=== PATIENT | male | born 1950 | race Caucasian/White ===

== ENCOUNTER 2019-04-18 15:33 | Inpatient (IN) ==
[2019-04-18] MEDS ORDERED: ONDANSETRON INJ 2 MG/ML 2 ML VIAL IV STA (15:54)
[2019-04-18] MEDS ORDERED: MoRPHine SULFATE 4 MG/ML 1 ML CARP\\VIAL IV STA (15:54)
[2019-04-18 16:25] LABS: Basophils # (auto) 0.06 K/uL (0-0.2); Basophils % (auto) 0.5 %; Eosinophils # (auto) 0.17 K/uL (0-0.5); Eosinophils % (auto) 1.4 %; Hematocrit (blood only) 44.1 % (42-52); Hemoglobin 15.7 g/dL (14.0-18.0); Immature Granulocytes # (auto) 0.06 K/uL (0.00-0.02); Immature Granulocytes % (auto) 0.5 %; Lymphocytes # (auto) 1.59 K/uL (1.2-3.4); Lymphocytes % (auto) 12.7 %; Mean Corpuscular Hemoglobin 31.7 pg (25-34); Mean Corpuscular Hgb Conc 35.6 g/dL (32-36); Mean Corpuscular Volume 89.1 fL (80-100); Mean Platelet Volume 9.3 fL (7.4-10.4); Monocytes # (auto) 1.01 K/uL (0.11-0.59); Monocytes % (auto) 8.1 %; Neutrophils # (auto) 9.64 K/uL (1.4-6.5); Neutrophils % (auto) 76.8 %; Platelet Count 242 K/uL (130-400); RDW Coefficient of Variation 12.8 % (11.5-14.5); RDW Standard Deviation 41.5 fL (36.4-46.3); Red Blood Count 4.95 M/uL (4.7-6.1); White Blood Count 12.53 K/uL (4.8-10.8)
[2019-04-18 16:40] LABS: INR 1.1 (0.9-1.1); Partial Thromboplastin Ratio 0.9; Partial Thromboplastin Time 23.6 Seconds (21.0-31.0); Prothrombin Time 11.4 Seconds (9.0-12.0)
[2019-04-18 16:46] LABS: Albumin Level 3.9 gm/dl (3.4-5.0); BUN Creatinine Ratio 23.6 (10-20); Calcium 9.7 mg/dl (8.5-10.1); Creatinine Clr Calc Pharmacy 56.7 ml/min; Est GFR (African American) 51.3; Est GFR (Non-African American) 44.2; Potassium 4.1 mmol/L (3.5-5.1)
[2019-04-18 16:56] LABS: Albumin Globulin Ratio 0.8 (0.9-2); Bilirubin,Total 0.9 mg/dl (0.2-1); Globulin 4.8 gm/dl (2.5-4.0); Thyroid Stimulating Hormone 1.54 uIu/ml (0.300-4.500); Total Protein 8.7 gm/dl (6.4-8.2)
--- NOTE | 2019-04-18 17:50 | Ultrasound Report ---
LEFT LOWER EXTREMITY VENOUS DOPPLER HISTORY: Left leg swelling eval for dvt COMPARISON STUDY: None. FINDINGS: There is occlusive thrombus throughout the deep venous structures of the left lower extremi ty as well as the greater saphenous vein and deep femoral vein. IMPRESSION: Extensive DVT throughout the entire left lower extremity. Electronically signed by: Ray Barron M.D. 04/18/2019 5:49 PM
[2019-04-18] MEDS ORDERED: OPTIRAY 320 125ml IV PRN (17:57)
--- NOTE | 2019-04-18 18:31 | CT Scan Report ---
CHEST CTA for PULMONARY ARTERIES CT DOSE: 586.68 mGy.cm HISTORY: Positive DVT. Assess for pulmonary embolus. TECHNIQUE: Multiaxial CT images of the chest were performed following the intravenous administration of contrast to evaluate the pulmonary arteries. Maximal intensity projection images were also obtaine d. A dose lowering technique was utilized adhering to the principles of ALARA. COMPARISON STUDY: None. FINDINGS: Small scattered nonocclusive filling defects seen within the distal right main pulmonary ar jennifer, the right upper lobe and the right lower lobe pulmonary arteries. These are consistent with pul monary emboli. There is flattening of the interventricular septum suggestive of mild right-sided hear t strain. Normal caliber thoracic aorta with no evidence for dissection. No pleural or pericardial ef fusions. The visualized liver and spleen are unremarkable. Normal esophagus. No mediastinal or hilar lymphadenopathy. No suspicious lytic are blastic osseous lesions. No pneumothorax. The central airway s are patent. Small wedge-shaped consolidation within the base of the right lower lobe likely represe nts a pulmonary infarct. A few additional scattered linear densities at the lung bases favor subsegme ntal atelectasis or scarring. IMPRESSION: 1. Right-sided pulmonary emboli with mild flattening of the interventricular septum suggestive of mil d right-sided heart strain. 2. Small focal wedge-shaped consolidation within the base of the right lower lobe consistent with a p ulmonary infarct. Electronically signed by: Ray Barron M.D. 04/18/2019 6:29 PM
[2019-04-18] MEDS ORDERED: HEPARIN SOD (PORCINE) 1000 UNIT/ML 10 ML VIAL ONE (18:57)
[2019-04-18] MEDS: HEPARIN SODIUM/DEXTROSE 25,000 UNITS/500 ML BAG IV SCH (19:05)
--- NOTE | 2019-04-18 20:59 | Emergency Department Note ---
Entered by Linsey Miller acting as a scribe for Paco Mosqueda MD History of Present Illness General Chief complaint: Leg Injury/Pain Stated complaint: L LEG SWOLLEN Source: patient Limitations: no limitations History of Present Illness Onset (ago): week(s) 2 Location: lower extremity (left) Pain Consistency: + constant Maximum Pain Intensity: 9 Quality: + other (pain and swelling ) Associated symptoms: + denies other symptoms (abdominal pain, lower extremity numbness, diarrhea, chest pain, fever, and erythema to the LLE), + nausea/vomiting and + shortness of breath The patient is a 68 year old male who presents to the Emergency Room with complaints of constant left lower extremity pain and swelling that began 2 week ago. He states that he woke up with the pain 2 weeks ago, and he denies any injury to the area. The patient complains of intermittent SOB, but he states th at he is not short of breath now. He reports that he vomited once within the past week. The patient denies any abdominal pain, lower extremity numbness, diarrhea, chest pain, fever, and erythema to the LLE. He denies any medical problems, history of DVT or PE, and recent trips. Home Medications Home Medications Medication Instructions Recorded Confirmed Type No Known Home Medications 04/18/19 04/18/19 History Allergies Allergy/AdvReac Type Severity Reaction Status Date / Time No Known Allergies Allergy Unverified 04/18/19 17:21 Past Med/Surg History Medical History Cyst Social History Preferred Language: Jamaican Feels Safe at Home: Yes Smoking Status: Never smoker Review of Systems See HPI for pertinent positives & negatives. and A total of 10 systems reviewed and were otherwise negative Physical Exam Vital Signs Vital Signs - 24 hr 04/18/19 15:39 04/18/19 15:57 04/18/19 16:00 Temperature 36.4 C L Temperature Source Oral Sepsis Recent Fever Within 48 Hours No Sepsis New/Unexplained Change in Mental Status No Sepsis Action Taken by Nursing No Action Required Pulse Rate 143 H 115 H 111 H Pulse Rate from SpO2 Sensor 114 H 112 H Respiratory Rate 18 19 17 Blood Pressure 137/84 Blood Pressure Mean 101 Pulse Oximetry 98 97 98 Oxygen Delivery Method Room Air 04/18/19 16:13 04/18/19 16:30 04/18/19 17:00 Temperature Temperature Source Sepsis Recent Fever Within 48 Hours Sepsis New/Unexplained Change in Mental Status Sepsis Action Taken by Nursing Pulse Rate 111 H 111 H 107 H Pulse Rate from SpO2 Sensor 111 H 113 H 106 H Respiratory Rate 15 23 22 Blood Pressure 171/94 H 149/95 H 160/87 H Blood Pressure Mean 119 113 111 Pulse Oximetry 97 98 97 Oxygen Delivery Method 04/18/19 18:08 04/18/19 18:09 04/18/19 18:10 Temperature Temperature Source Sepsis Recent Fever Within 48 Hours Sepsis New/Unexplained Change in Mental Status Sepsis Action Taken by Nursing Pulse Rate 109 H 122 H 113 H Pulse Rate from SpO2 Sensor 122 H 112 H Respiratory Rate 18 23 23 Blood Pressure 165/109 H Blood Pressure Mean 127 Pulse Oximetry 99 98 99 Oxygen Delivery Method 04/18/19 18:30 04/18/19 19:00 04/18/19 19:30 Temperature Temperature Source Sepsis Recent Fever Within 48 Hours Sepsis New/Unexplained Change in Mental Status Sepsis Action Taken by Nursing Pulse Rate 100 H 102 H 103 H Pulse Rate from SpO2 Sensor 101 H 103 H 103 H Respiratory Rate 25 H 16 18 Blood Pressure 159/85 H 153/97 H 152/86 H Blood Pressure Mean 109 115 108 Pulse Oximetry 99 96 96 Oxygen Delivery Method 04/18/19 20:00 Temperature Temperature Source Sepsis Recent Fever Within 48 Hours Sepsis New/Unexplained Change in Mental Status Sepsis Action Taken by Nursing Pulse Rate 105 H Pulse Rate from SpO2 Sensor 107 H Respiratory Rate 18 Blood Pressure 132/95 Blood Pressure Mean 107 Pulse Oximetry 98 Oxygen Delivery Method Constitutional: Vital signs reviewed. Eyes: Pupils are equal round reactive to light. Conjunctiva are noninjected. ENT: Pharynx is clear without erythema or exudate. Mucous membranes are moist. Neck supple without meningeal signs. Respiratory: Clear to auscultation bilaterally. Breath sounds are equal bilaterally. Cardiovascular: Tachycardic rate of 115. Regular rhythm. No rubs or gallops. GI: Soft, nondistended and nontender. Bowel sounds are present. Musculoskeletal: Diffuse edema to the left lower extremity. 2+ distal pulse. Mild diffuse tenderness. Integumentary: No cyanosis. Neurological: The patient is awake and alert. No focal deficits. Psychiatric: Very anxious. Course 1549: The patient was evaluated in room C12B. A complete history and physical exam was performed. 1840: I reevaluated the patient and his heart rate was 98. The risk and benefits of heparin were discussed with the patient, and he is agreeable to heparin treatment. He denies any history of bleeding in the gut or the brain. 1843: I spoke with Dr. Rubalcava, [facility] hospitalist, about the patient's case. She will further evaluate the patient. 1920: I reassessed the patient. The heparin drip is running. Vital signs stable. Very slightly tachycardic. He denies any chest pain and SOB. Consultations Consultation #1: I spoke with Dr. Rubalcava, [facility] hospitalist, about the patient's case. She will further evaluate the patient. Time: 18:43 Administered Medications Heparin Sodium/Dextrose (Heparin Sodium/Dextrose) 25,000 units in 500 mls @ 0.02 mls/hr IV .Q24H DURAN; Protocol Stop: 05/18/19 18:44 Last Admin: 04/18/19 19:05 Dose: 1,600 units/hr, 32 mls/hr Documented by: [id number] Cosigned by: [id number] Ioversol (Optiray 320 125ml) 118 ml IV ONCE PRN PRN Reason: Interaction Checking Stop: 04/22/19 17:56 Last Admin: 04/18/19 17:58 Dose: 118 ml Documented by: [id number] Discontinued Medications Heparin Sodium (Porcine) (Heparin Iv Bolus) Confirm Administered Dose 10,000 units .ROUTE .STK-MED ONE Stop: 04/18/19 18:58 Last Admin: 04/18/19 19:04 Dose: 7,000 units Documented by: [id number] Cosigned by: [id number] Heparin Sodium/Dextrose () 1 ea IV NOW STA; Protocol Stop: 04/18/19 18:44 Last Admin: 04/18/19 19:53 Dose: Not Given Documented by: [id number] Morphine Sulfate (Morphine Sulfate) 4 mg IV NOW STA Stop: 04/18/19 15:55 Last Admin: 04/18/19 16:28 Dose: 4 mg Documented by: [id number] Ondansetron HCl (Zofran) 4 mg IV NOW STA Stop: 04/18/19 15:55 Last Admin: 04/18/19 16:28 Dose: 4 mg Documented by: [id number] Medical Decision Making Differential Diagnosis The differential diagnosis includes: DVT, superficial thrombophlebitis, PE, anxiety, and cellulitis Medical Records Attestation: I reviewed the patient's medical records. I did perform a limited focused review of portions of the patient's old chart on the electronic medical record. The patient has had no recent pertinent visits to this hospital. Home Medications Current Medication List: was personally reviewed by me Laboratory Data Attestation: I reviewed the patient's lab results. Result diagrams: 04/18/19 16:14 04/18/19 16:14 Lab Results 04/18/19 04/18/19 04/18/19 Range/Units 16:14 16:14 16:14 WBC 12.53 H (4.8-10.8) K/uL RBC 4.95 (4.7-6.1) M/uL Hgb 15.7 (14.0-18.0) g/dL Hct 44.1 (42-52) % MCV 89.1 (80-100) fL MCH 31.7 (25-34) pg MCHC 35.6 (32-36) g/dL RDW Std Deviation 41.5 (36.4-46.3) fL RDW Coeff of Xavi 12.8 (11.5-14.5) % Plt Count 242 (130-400) K/uL MPV 9.3 (7.4-10.4) fL Immature Gran % (Auto) 0.5 % Neut % (Auto) 76.8 % Lymph % (Auto) 12.7 % [place] % (Auto) 8.1 % Eos % (Auto) 1.4 % Baso % (Auto) 0.5 % Immature Gran # (Auto) 0.06 H (0.00-0.02) K/uL Neut # (Auto) 9.64 H (1.4-6.5) K/uL Lymph # (Auto) 1.59 (1.2-3.4) K/uL [place] # (Auto) 1.01 H (0.11-0.59) K/uL Eos # (Auto) 0.17 (0-0.5) K/uL Baso # (Auto) 0.06 (0-0.2) K/uL PT 11.4 (9.0-12.0) Seconds INR 1.1 (0.9-1.1) APTT 23.6 (21.0-31.0) Seconds PTT Ratio 0.9 Sodium 136 (136-145) mmol/L Potassium 4.1 (3.5-5.1) mmol/L Chloride 100 (98-107) mmol/L Carbon Dioxide 23 (21-32) mmol/L Anion Gap 13.0 H (3-11) BUN 38 H (7-18) mg/dl Creatinine 1.60 H (0.6-1.4) mg/dl Est Cr Clr Drug Dosing 56.7 ml/min Est GFR ( Amer) 51.3 Est GFR (Non-Af Amer) 44.2 BUN/Creatinine Ratio 23.6 H (10-20) Glucose 136 H (70-99) mg/dl Calcium 9.7 (8.5-10.1) mg/dl Total Bilirubin 0.9 (0.2-1) mg/dl AST 32 (15-37) U/L ALT 46 (12-78) U/L Alkaline Phosphatase 80 (45-117) U/L POC Troponin I (0-0.045) ng/ml Total Protein 8.7 H (6.4-8.2) gm/dl Albumin 3.9 (3.4-5.0) gm/dl Globulin 4.8 H (2.5-4.0) gm/dl Albumin/Globulin Ratio 0.8 L (0.9-2) TSH 1.540 (0.300-4.500) uIu/ml 04/18/19 Range/Units 16:24 WBC (4.8-10.8) K/uL RBC (4.7-6.1) M/uL Hgb (14.0-18.0) g/dL Hct (42-52) % MCV (80-100) fL MCH (25-34) pg MCHC (32-36) g/dL RDW Std Deviation (36.4-46.3) fL RDW Coeff of Xavi (11.5-14.5) % Plt Count (130-400) K/uL MPV (7.4-10.4) fL Immature Gran % (Auto) % Neut % (Auto) % Lymph % (Auto) % [place] % (Auto) % Eos % (Auto) % Baso % (Auto) % Immature Gran # (Auto) (0.00-0.02) K/uL Neut # (Auto) (1.4-6.5) K/uL Lymph # (Auto) (1.2-3.4) K/uL [place] # (Auto) (0.11-0.59) K/uL Eos # (Auto) (0-0.5) K/uL Baso # (Auto) (0-0.2) K/uL PT (9.0-12.0) Seconds INR (0.9-1.1) APTT (21.0-31.0) Seconds PTT Ratio Sodium (136-145) mmol/L Potassium (3.5-5.1) mmol/L Chloride (98-107) mmol/L Carbon Dioxide (21-32) mmol/L Anion Gap (3-11) BUN (7-18) mg/dl Creatinine (0.6-1.4) mg/dl Est Cr Clr Drug Dosing ml/min Est GFR ( Amer) Est GFR (Non-Af Amer) BUN/Creatinine Ratio (10-20) Glucose (70-99) mg/dl Calcium (8.5-10.1) mg/dl Total Bilirubin (0.2-1) mg/dl AST (15-37) U/L ALT (12-78) U/L Alkaline Phosphatase (45-117) U/L POC Troponin I < 0.03 (0-0.045) ng/ml Total Protein (6.4-8.2) gm/dl Albumin (3.4-5.0) gm/dl Globulin (2.5-4.0) gm/dl Albumin/Globulin Ratio (0.9-2) TSH (0.300-4.500) uIu/ml Imaging Data Radiologist's Impression: Radiology results as stated below per my review and the radiologist's interpretation: LEFT LOWER EXTREMITY VENOUS DOPPLER HISTORY: Left leg swelling eval for dvt COMPARISON STUDY: None. FINDINGS: There is occlusive thrombus throughout the deep venous structures of the left lower extremity as well as the greater saphenous vein and deep femoral vein. IMPRESSION: Extensive DVT throughout the entire left lower extremity. Electronically signed by: Ray Barron M.D. 04/18/2019 5:49 PM CHEST CTA for PULMONARY ARTERIES CT DOSE: 586.68 mGy.cm HISTORY: Positive DVT. Assess for pulmonary embolus. TECHNIQUE: Multiaxial CT images of the chest were performed following the intravenous administration of contrast to evaluate the pulmonary arteries. Maximal intensity projection images were also obtained. A dose lowering t echnique was utilized adhering to the principles of ALARA. COMPARISON STUDY: None. FINDINGS: Small scattered nonocclusive filling defects seen within the distal right main pulmonary artery, the right upper lobe and the right lower lobe pulmonary arteries. These are consistent with pulmonary emboli. There is flattening of the interventricular septum suggestive of mild right-sided heart strain. Normal caliber thoracic aorta with no evidence for dissection. No pleural or pericardial effusions. The visualized liver and spleen are unremarkable. Normal esophagus. No mediastinal or hilar lymphadenopathy. No suspicious lytic are blastic osseous lesions. No pneumothorax. The central airways are patent. Small wedge-shaped consolidation within the base of the right lower lobe likely represents a pulmonary infarct. A few additional scattered linear densities at the lung bases favor subsegmental atelectasis or scarring. IMPRESSION: 1. Right-sided pulmonary emboli with mild flattening of the interventricular septum suggestive of mild right-sided heart strain. 2. Small focal wedge-shaped consolidation within the base of the right lower lobe consistent with a pulmonary infarct. Electronically signed by: Ray Barron M.D. 04/18/2019 6:29 PM ECG Data Attestation: I personally reviewed and interpreted this ECG as follows: Indication: tachycardia Rate (beats per minute): 119 Rhythm: sinus tachycardia Findings: + other (non specific ST changes); no PVC and no ST elevation Blood Pressure Blood Pressure Findings: Elevated blood pressure Blood Pressure Disposition: Referred to patients primary care provider MDM Narrative I did evaluate the patient as noted above. The patient is presenting with swelling and pain to his left leg. He has diffuse swelling and I am concerned about a DVT. He is also tachycardic but he states that he is extremely nervous when he goes to the hospital. He denies any chest pain or upper back pain. He did state that he had some intermittent shortness of breath but is not short of breath currently. His O2 saturation is normal. I did recommend to the patient that we obtain a CT of the chest as well as ultrasound of the left leg to evaluate for DVT/PE. IV access was established. The patient was placed on a continuous classroom monitor. I did order and personally review the patient's 12- lead EKG as described above. He has sinus tachycardia without acute ischemia. I did order and review the patient's blood work as noted in the electronic medical record. His white count is 12.5. Creatinine is 1.6. Electrolytes are otherwise unremarkable. I did order a Doppler of the left lower extremity which showed extensive DVT. I did order a CT of the chest. I did review the images myself as well as the radiology report as described above. He does have multiple right-sided pulmonary emboli. He also has what appears to be a pulmonary infarct. I did discuss the test results with the patient. I did recommend we start him on heparin IV. I did order hypercoagulable studies prior to the heparin being administered. He was given IV heparin drip and bolus. I did discuss case with the hospitalist and clinical case manager. Impression & Plan Pulmonary embolism, Pulmonary infarct, Deep vein thrombosis (DVT) of left lower extremity Critical Care Time Critical Care Time: Yes Total Critical Care Time: 35 I have personally spent approximately 35 minutes of critical care time in the direct management of this patient. This includes bedside care, interpretation of diagnostic studies, and testing, discussion with consultants, patient, and family members, and other required patient management activities. This 35 minutes is in excess of all separately billable procedures. Discharge Plan Visit Data Chief Complaint: Leg Injury/Pain Stated Complaint: L LEG SWOLLEN ED Provider: Paco Mosqueda Discharge Problem: Pulmonary embolism, Pulmonary infarct, Deep vein thrombosis (DVT) of left lower extremity Patient Disposition: Being Evaluated by Hospitalist Forms Stand Alone Forms: My [facility] [employer] Prescriptions Prescriptions: No Action No Known Home Medications RF: 0 Referrals Referrals: PCP,NO [Primary Care Provider] - Discharge Problem: Pulmonary embolism Qualifiers: Pulmonary embolism type: unspecified Chronicity: unspecified Acute cor pulmonale presence: unspecified Qualified Code(s): I26.99 - Other pulmonary embolism without acute cor pulmonale Deep vein thrombosis (DVT) of left lower extremity Qualifiers: Affected thrombotic vein of extremity: unspecified vein of extremity Chronicity: unspecified Qualified Code(s): I82.402 - Acute embolism and thrombosis of unspecified deep veins of left lower extremity The scribe's documentation has been prepared under my direction and personally reviewed by me in its entirety. I confirm that the note above accurately reflects all work, treatment, procedures, and medical decision making performed by me.
--- NOTE | 2019-04-18 21:20 | History & Physical Report ---
Date of Service April 18, 2019 Assessment & Plan (1) Pulmonary embolism: Admit to PCU on telemetry Vital signs every 4 hours Continue heparin drip for pulmonary embolism, left lower extremity extremity DVT, and pulmonary infarction In case of hemodynamic instability immediately transferred to the ICU. Consider transfer to [facility] for interventional radiology procedure or somewhere where TPA can be given locally if patient patient is worsening. Discussed with Dr. Dias and he agrees to keep patient in-house since he is hemodynamically stable on heparin drip. Monitor PT, PTT INR TTE pending BNP pending Troponin x2 with EKG pending Gentle gentle IV fluid hydration 100 cc/h normal saline for 1 L. Assess thereafter receiving BNP if more fluid can be given. DVT prophylaxis heparin drip and for PE and DVT Full code Consider starting patient on Xarelto 15 mg p.o. twice daily for 21 days then 20 mg daily continuously later on if approved by his insurance. Present on Admission?: Yes (2) Pulmonary infarct: Management as above Present on Admission?: Yes (3) Deep vein thrombosis (DVT) of left lower extremity: Management as above Present on Admission?: Yes (4) Acute on chronic kidney failure: Creatinine elevated to 1.6, and GFR of 44.2, at this point is not clear if this is acute or chronic kidney insufficiency since patient was not in this hospital before. Gentle IV fluid hydration with normal saline 100 cc/h for 1 L. Avoid nephrotoxic agents. Present on Admission?: Yes (5) Leukocytosis: Urine analysis pending. Started ceftriaxone 2 g IV every 24. Urine culture pending Present on Admission?: Yes History of Present Illness Chief Complaint: Shortness of breath and left lower extremity swelling Primary Care Provider: NO PCP Patient is a 68 years old male without significant past medical history who presents to the emergency room with a complaint of left lower extremity pain and swelling that started 2 weeks ago and intermittent shortness of breath. Patient states that he woke up with pain 2 weeks ago and he did not sustain any left lower extremity injury nor nor did long distance travel or driving or flying or prolonged sitting. Patient said that he is very active and he walks around. Patient reports vomited once within the past week. Other than that patient denies fever chills, headache, chest pain, cough, abdominal pain, frequency, urgency, melena, hematemesis, hematuria, hemoptysis, hematochezia, syncope or near syncope. Labs WBC 12.53, hemoglobin 15.7, hematocrit 44.1, platelets 242. Protein C activity pending, protein S activity pending, Antithrombin III activity pending factor V Leyden mutation pending factor V Leyden interpretation pending, beta 2 GPI IgG G antibody pending beta-2 GPI IgA antibody pending beta- 2 GPI IgM antibody pending, anticardiolipin IgG G antibody pending anticardiolipin IgA antibody pending cardiolipin IgM antibody pending, prothrombin gene mutation pending. PT 11.4, INR 1.1, APTT 23.6. Sodium 136, potassium 4.1, chloride 100 anion gap 13 BUN 38 creatinine 1.6 GFR 44.2, homocystine pending, TSH 1.54, troponin less than 0.03. CTA of the chest right- sided pulmonary embolus with mild flattening of the intraventricular septum suggestive of mild right-sided heart strain. Small focal wedge-shaped consolidation within the base of the right lower lobe consistent with pulmonary infarct. The case discussed with ICU and he agrees to keep his in the PCU unless he develop hemodynamic instability, then he should be transferred to the PCU on telemetry for further management and treatment of pulmonary embolism, pulmonary infarction and left lower extremity extremity DVT. Allergies Allergy/AdvReac Type Severity Reaction Status Date / Time No Known Allergies Allergy Unverified 04/18/19 17:21 Home Medications Home Medications Medication Instructions Recorded Confirmed Type No Known Home Medications 04/18/19 04/18/19 History Past Med/Surg History Medical History Cyst Social History Preferred Language: Romanian Feels Safe at Home: Yes Smoking Status: Never smoker Review of Systems Review of Systems: All systems reviewed & are unremarkable except as noted in HPI & below Physical Exam Constitutional: WD/WN, vitals as above well developed Eyes: PERRL, conjunctivae normal, anicteric sclerae ENMT: external ear and nose normal, oropharynx normal Neck: trachea midline, no thyromegaly Respiratory: Auscultation: + wheezes Cardiovascular: RRR, no murmur, no edema Chest (Breasts): normal inspection/palpation of breasts Skin: no rashes, warm and dry Neurologic: patellar DTR's 2+ bilat, sensation intact Psychiatric: A+Ox3, euthymic affect Lymphatic: no cervical or axillary lymphadenopathy Results & Data Vital Signs (Past 12 Hours) Vital Signs Temp Pulse Resp BP Pulse Ox 04/18/19 20:00 105 H 18 132/95 98 04/18/19 19:30 103 H 18 152/86 H 96 04/18/19 19:00 102 H 16 153/97 H 96 04/18/19 18:30 100 H 25 H 159/85 H 99 04/18/19 18:10 113 H 23 99 04/18/19 18:09 122 H 23 165/109 H 98 04/18/19 18:08 109 H 18 99 04/18/19 17:00 107 H 22 160/87 H 97 04/18/19 16:30 111 H 23 149/95 H 98 04/18/19 16:13 111 H 15 171/94 H 97 04/18/19 16:00 111 H 17 98 04/18/19 15:57 115 H 19 97 04/18/19 15:39 36.4 C L 143 H 18 137/84 98 Code Status & VTE Plan Code Status Full code VTE Prophylaxis Plan VTE Prophylaxis will be ordered: Yes PG Care Time/CCT Total # of Minutes Spent Total Time Spent with Patient: Total time spent is greater than 50% in coordination of care (as documented) at patient's floor/unit and/or counseling patient: (1) Pulmonary embolism Acute cor pulmonale presence: unspecified Chronicity: unspecified Pulmonary embolism type: unspecified Qualified Code(s): I26.99 - Other pulmonary embolism without acute cor pulmonale (2) Deep vein thrombosis (DVT) of left lower extremity Affected thrombotic vein of extremity: unspecified vein of extremity Chronicity: unspecified Qualified Code(s): I82.402 - Acute embolism and thrombosis of unspecified deep veins of left lower extremity
[2019-04-18] MEDS ORDERED: OXYCODONE/ACETAMINOPHEN 5mg/325mg TAB PO PRN (22:45)
[2019-04-18] MEDS ORDERED: ACETAMINOPHEN 325 MG TAB PO PRN (22:45)
[2019-04-18] MEDS ORDERED: ALUMINUM/MAGNESIUM SUSP 30 ML UDC PO PRN (22:45)
[2019-04-18] MEDS ORDERED: MAGNESIUM HYDROXIDE SUSP 30 ML UDC PO PRN (22:45)
[2019-04-18] MEDS ORDERED: ZOLPIDEM TARTRATE 5 MG TAB PO PRN (22:45)
[2019-04-18] MEDS ORDERED: POLYETHYLENE (MIRALAX) 17 GM PACK PO PRN (22:45)
[2019-04-18] MEDS ORDERED: cefTRIAXone SODIUM 2,000 MG in DEXTROSE 5% 50 ML IV SCH (23:30)
[2019-04-18] MEDS: SODIUM CHLORIDE 0.9% 1000ML 1,000 ML IV SCH (23:34)
[2019-04-19 00:54] LABS: Appearance Urine Clear (Clear); Bilirubin Urine Negative (Negative); Blood Urine Negative (Negative); Color Urine Yellow; Glucose Urine UA Negative (Negative); Ketones Urine Negative (Negative); Leukocyte Esterase Urine Negative (Negative); Nitrite Urine Negative (Negative); Protein Urine Negative (Negative); Specific Gravity Urine > 1.045 (1.000-1.030); Urobilinogen Urine Negative (Negative)
[2019-04-19 01:15] LABS: Basophils # (auto) 0.09 K/uL (0-0.2); Basophils % (auto) 0.9 %; Eosinophils % (auto) 3.1 %; Hematocrit (blood only) 39.9 % (42-52); Immature Granulocytes # (auto) 0.05 K/uL (0.00-0.02); Immature Granulocytes % (auto) 0.5 %; Lymphocytes # (auto) 2.23 K/uL (1.2-3.4); Lymphocytes % (auto) 22.8 %; Mean Corpuscular Hemoglobin 31.3 pg (25-34); Mean Corpuscular Hgb Conc 35.1 g/dL (32-36); Mean Corpuscular Volume 89.3 fL (80-100); Mean Platelet Volume 9.3 fL (7.4-10.4); Monocytes # (auto) 1.03 K/uL (0.11-0.59); Monocytes % (auto) 10.5 %; Neutrophils % (auto) 62.2 %; Platelet Count 228 K/uL (130-400); RDW Coefficient of Variation 12.8 % (11.5-14.5); RDW Standard Deviation 41.8 fL (36.4-46.3); Red Blood Count 4.47 M/uL (4.7-6.1)
[2019-04-19 01:35] LABS: Partial Thromboplastin Ratio 2.1
[2019-04-19 01:37] LABS: Partial Thromboplastin Time 57.4 Seconds (21.0-31.0)
[2019-04-19 01:44] LABS: NT Pro B Type Natriuretic Pept 62 pg/ml (0-900); Troponin I < 0.015 ng/ml (0-0.045)
[2019-04-19 06:33] LABS: Basophils # (auto) 0.09 K/uL (0-0.2); Eosinophils # (auto) 0.32 K/uL (0-0.5); Eosinophils % (auto) 3.5 %; Hemoglobin 14.3 g/dL (14.0-18.0); Immature Granulocytes # (auto) 0.03 K/uL (0.00-0.02); Immature Granulocytes % (auto) 0.3 %; Lymphocytes % (auto) 19.8 %; Mean Corpuscular Hemoglobin 30.8 pg (25-34); Mean Corpuscular Volume 90.3 fL (80-100); Mean Platelet Volume 9.7 fL (7.4-10.4); Monocytes # (auto) 0.94 K/uL (0.11-0.59); Monocytes % (auto) 10.3 %; Neutrophils # (auto) 5.92 K/uL (1.4-6.5); Neutrophils % (auto) 65.1 %; Platelet Count 209 K/uL (130-400); RDW Standard Deviation 42.4 fL (36.4-46.3); Red Blood Count 4.65 M/uL (4.7-6.1)
--- NOTE | 2019-04-19 06:50 | Ultrasound Report ---
EXAMINATION: RENAL ULTRASOUND CLINICAL HISTORY: renal failure COMPARISON STUDY: FINDINGS: The right kidney measures 611.4 cm. The left kidney measures 11.4 cm. There is no evidence of hydronephrosis. There are bilateral renal cysts. There is a 3.5 cm lower pole left renal cyst an d 4.8 cm upper pole right renal cyst. There is mild renal cortical thinning. There is borderline increase in hepatic echogenicity. No bladder abnormalities are visualized. Bilateral ureteral jets were visualized. There is mild pros tamegaly. IMPRESSION : 1. Bilateral renal cysts 2. Mild renal cortical thinning 3. No evidence of hydronephrosis 4. Mild prostatomegaly Electronically signed by: Humza Nunes M.D. 04/19/2019 6:49 AM
[2019-04-19 06:53] LABS: INR 1.1 (0.9-1.1); Partial Thromboplastin Ratio 1.9; Prothrombin Time 11.5 Seconds (9.0-12.0)
[2019-04-19 06:54] LABS: Estimated Average Glucose 111 mg/dl; Hemoglobin A1C 5.5 % (4.5-5.6)
[2019-04-19 07:00] LABS: Partial Thromboplastin Time 52.2 Seconds (21.0-31.0)
[2019-04-19 07:01] LABS: Albumin Level 3.1 gm/dl (3.4-5.0); BUN Creatinine Ratio 23.5 (10-20); Calcium 8.8 mg/dl (8.5-10.1); Creatinine Clr Calc Pharmacy 65.4 ml/min; Est GFR (African American) 60.3; Potassium 4.5 mmol/L (3.5-5.1)
[2019-04-19 07:03] LABS: Albumin Globulin Ratio 0.7 (0.9-2); Bilirubin,Total 0.6 mg/dl (0.2-1); Globulin 4.3 gm/dl (2.5-4.0); Total Protein 7.4 gm/dl (6.4-8.2)
--- NOTE | 2019-04-19 07:57 | Family Medicine Progress Note ---
Date of Service April 19, 2019 Assessment & Plan (1) Pulmonary embolism: #Pulmonary embolus and DVT, left lower extremity -Admitted to PCU on telemetry -trop continues to be negative -Consulted hematology oncology following recommendations -Given this is an unprovoked DVT in a man with known risk factors will need age-appropriate cancer screening -Follow-up hypercoagulable panel -D/C heparin drip and transition to Xarelto -15 mg twice daily with food for 21 days then 20 mg daily with food -F/u outpt with heme-onc in 1 month -Stable for d/c avoid vigorous activity or collision or high fall risk activities until follow-up -Will transition from heparin drip to Xarelto this evening for convenience of medication dosing -F/u TTE #Pulmonary infarct: Management as above #DVT of left lower extremity: Management as above #JOSE: Creatinine elevated to 1.6, and GFR of 44.2, at this point is not clear if this is acute or chronic kidney insufficiency since patient was not in this hospital before. -Cr 1.6->1.4 -Avoid nephrotoxic agents. #Leukocytosis: Urinalysis negative received a dose of ceftriaxone in the ED. Leukocytosis likely secondary to pulmonary embolism given no overt signs or symptoms of infection. -D/C CTX FENa: Heart healthy Code Status: Full code DVT PPX: Xarelto Dispo: PCU hopefully discharge tomorrow. Will need follow-up with heme-onc in 1 month and follow-up with PCP in 1 week (2) Pulmonary infarct: (3) Deep vein thrombosis (DVT) of left lower extremity: (4) Acute on chronic kidney failure: (5) Leukocytosis: Supervising Physician Co-Signing Physician Notes Patient seen and examined independently of PGY-2 Dr. Zhong. Agree with history, exam findings, assessment and plan of care with the following additions/corrections: In brief, Mr. Franco is a previously healthy 68 year old male who is admitted with unprovoked extensive left lower extremity DVT and PE. He is doing well today. Denies shortness of breath. Does still have some pain in the left leg due to swelling. Reports that he has not even been allowed to get up to go to the bathroom in his room. He does not have a PCP. Lives in [place]. He is not sure who the rest of his family sees for primary care. His only mode of transportation at this time is a bicycle. He is retired. Has not had colon cancer or prostate cancer screening. PE: Vital signs reviewed. No tachycardia or hypotension. Saturating well on room air. Lungs are clear to ausculation without wheezes, ronchi or rales. Heart with regular rate and rhythm. No murmur, rub or gallop. The left lower leg with swelling and is nearly twice the size of the right lower leg. +2 pulses posterior tib. Feet are warm and pink. A/P: 1. unprovoked extensive left lower leg DVT with PE and pulmonary infarct. Heparin gtt to transition to xarelto. Hypercoag work up in progress. Will need colon cancer screening and prostate cancer screening. Can be done as an outpatient. 2. JOSE. resolved. D/C IVFs as he is taking PO well. 3. leukocytosis. No evidence of infection. Received 1 dose of ceftriaxone. Suspect this is most likely a reactive leukocytosis from DVT and PE. Dispo: If he continues to be stable, ok to discharge tomorrow. Anticoagulation with xarelto. Will need close follow up with PCP. Appreciate care management assistance with finding PCP near his home. Subjective Patient doing well this morning, lying flat in bed in no acute distress. Patient reports tolerating his diet, sleeping, voiding, has not had a bowel movement in 2 days although does not feel constipated. Patient relate a history of presenting symptoms, it is consistent with that documented in admission history and physical. Interestingly he appears to be a active gentleman, with no significant risk factors for PE. Uncertain status of preventative medicine colonoscopy. Does not have a PCP. Not endorsing any chest pain or other pain. Patient states he is eager to get up out of bed and walk around. No acute conc erns all questions answered. Review of Systems Review of Systems: 14 point review of systems negative except as noted above or below Constitutional: Normal or as above Eyes and Vision: Normal or as above ENT: Normal or as above Cards: Normal or as above Respiratory: Normal or as above GI: Normal or as above : Normal or as above MSK: Normal or as above Skin: Normal or as above Neuro: Normal or as above Psych normal or as above Endocrine: Normal or as above Hematological and lymphatic: Normal or as above Allergy and Immunology: Normal or as above Physical Exam Physical Exam: General: Well-appearing gentleman in no acute distress lying flat in bed HEENT: Normocephalic atraumatic, has a mass on his head has been there a long time per the patient it is benign Neck: Normal to visual inspection, trachea midline, negative JVD Cardiac: Regular rate and rhythm, I did not appreciate any significant murmurs rubs or gallops, good capillary refill Respiratory: Clear to auscultation bilaterally with symmetrical chest rise, I did not appreciate any wheezes, rales, rhonchi GI: Normal bowel sounds, nontender, nondistended MSK: Moves all extremities Skin: Clean dry intact, well-perfused Neuro: Alert and oriented x4, CN II through XII intact, no motor or sensory deficits Psych: Calm, cooperative, eager to get up and move around Results & Data Vital Signs (Past 12 Hours) Vital Signs Temp Pulse Pulse Resp BP BP BP 04/19/19 07:41 36.8 C 88 18 135/82 04/19/19 03:58 36.9 C 89 18 130/82 04/19/19 00:08 37.0 C 97 H 18 128/82 04/18/19 22:27 37.0 C 97 H 20 144/82 H 04/18/19 22:00 103 H 20 142/83 H 04/18/19 21:30 100 H 20 137/81 04/18/19 21:00 98 H 18 141/83 H 04/18/19 20:30 101 H 19 138/83 04/18/19 20:00 105 H 18 132/95 Pulse Ox 04/19/19 07:41 99 04/19/19 03:58 96 04/19/19 00:08 97 04/18/19 22:27 97 04/18/19 22:00 96 04/18/19 21:30 95 04/18/19 21:00 98 04/18/19 20:30 97 04/18/19 20:00 98 Laboratory Results 04/19/19 04/19/19 04/19/19 Range/Units 06:14 06:14 06:14 WBC (4.8-10.8) K/uL RBC (4.7-6.1) M/uL Hgb (14.0-18.0) g/dL Hct (42-52) % MCV (80-100) fL MCH (25-34) pg MCHC (32-36) g/dL RDW Std Deviation (36.4-46.3) fL RDW Coeff of Xavi (11.5-14.5) % Plt Count (130-400) K/uL MPV (7.4-10.4) fL Immature Gran % (Auto) % Neut % (Auto) % Lymph % (Auto) % [place] % (Auto) % Eos % (Auto) % Baso % (Auto) % Immature Gran # (Auto) (0.00-0.02) K/uL Neut # (Auto) (1.4-6.5) K/uL Lymph # (Auto) (1.2-3.4) K/uL [place] # (Auto) (0.11-0.59) K/uL Eos # (Auto) (0-0.5) K/uL Baso # (Auto) (0-0.2) K/uL PT (9.0-12.0) Seconds INR (0.9-1.1) APTT (21.0-31.0) Seconds PTT Ratio Hexagonal Phase Confirm Protein C Activity Protein S Activity Antithrombin III Activ Factor V Leiden Mutat Pending Factor V Leiden Interp Pending Sodium (136-145) mmol/L Potassium (3.5-5.1) mmol/L Chloride (98-107) mmol/L Carbon Dioxide (21-32) mmol/L Anion Gap (3-11) BUN (7-18) mg/dl Creatinine (0.6-1.4) mg/dl Est Cr Clr Drug Dosing ml/min Est GFR ( Amer) Est GFR (Non-Af Amer) BUN/Creatinine Ratio (10-20) Glucose (70-99) mg/dl Estimat Average Glucose 111 mg/dl Hemoglobin A1c 5.5 (4.5-5.6) % Calcium (8.5-10.1) mg/dl Total Bilirubin (0.2-1) mg/dl AST (15-37) U/L ALT (12-78) U/L Alkaline Phosphatase (45-117) U/L POC Troponin I (0-0.045) ng/ml Troponin I < 0.015 (0-0.045) ng/ml NT-Pro-B Natriuret Pep (0-900) pg/ml Total Protein (6.4-8.2) gm/dl Albumin (3.4-5.0) gm/dl Globulin (2.5-4.0) gm/dl Albumin/Globulin Ratio (0.9-2) Triglycerides (0-150) mg/dl Cholesterol (0-200) mg/dl LDL Cholesterol, Calc mg/dl VLDL Cholesterol, Calc mg/dl HDL Cholesterol mg/dl Cholesterol/HDL Ratio Homocysteine TSH (0.300-4.500) uIu/ml Urine Color Urine Appearance (Clear) Urine pH (4.5-7.5) Ur Specific [place] (1.000-1.030) Urine Protein (Negative) Urine Glucose (UA) (Negative) Urine Ketones (Negative) Urine Blood (Negative) Urine Nitrite (Negative) Urine Bilirubin (Negative) Urine Urobilinogen (Negative) Ur Leukocyte Esterase (Negative) Beta-2-GPI IgG Ab Pending Beta-2-GPI IgA Ab Pending Beta-2-GPI IgM Ab Pending Phosphatidylserine IgG Pending Phosphatidylserine IgA Pending Phosphatidylserine IgM Pending Anti-Phospholipid Intrp Pending Anti-Cardiolipin IgG Ab Pending Anti-Cardiolipin IgA Ab Pending Anti-Cardiolipin IgM Ab Pending Hepatitis C Ab Screen (Neg) Prothrombin Gene Mutate Pending Prothromb Gene Comment Pending 04/19/19 04/19/19 04/19/19 Range/Units 06:14 06:14 06:14 WBC 9.10 (4.8-10.8) K/uL RBC 4.65 L (4.7-6.1) M/uL Hgb 14.3 (14.0-18.0) g/dL Hct 42.0 (42-52) % MCV 90.3 (80-100) fL MCH 30.8 (25-34) pg MCHC 34.0 (32-36) g/dL RDW Std Deviation 42.4 (36.4-46.3) fL RDW Coeff of Xavi 13.0 (11.5-14.5) % Plt Count 209 (130-400) K/uL MPV 9.7 (7.4-10.4) fL Immature Gran % (Auto) 0.3 % Neut % (Auto) 65.1 % Lymph % (Auto) 19.8 % [place] % (Auto) 10.3 % Eos % (Auto) 3.5 % Baso % (Auto) 1.0 % Immature Gran # (Auto) 0.03 H (0.00-0.02) K/uL Neut # (Auto) 5.92 (1.4-6.5) K/uL Lymph # (Auto) 1.80 (1.2-3.4) K/uL [place] # (Auto) 0.94 H (0.11-0.59) K/uL Eos # (Auto) 0.32 (0-0.5) K/uL Baso # (Auto) 0.09 (0-0.2) K/uL PT 11.5 (9.0-12.0) Seconds INR 1.1 (0.9-1.1) APTT 52.2 H* (21.0-31.0) Seconds PTT Ratio 1.9 Hexagonal Phase Confirm Protein C Activity Protein S Activity Antithrombin III Activ Factor V Leiden Mutat Factor V Leiden Interp Sodium 136 (136-145) mmol/L Potassium 4.5 (3.5-5.1) mmol/L Chloride 104 (98-107) mmol/L Carbon Dioxide 25 (21-32) mmol/L Anion Gap 7.0 (3-11) BUN 33 H (7-18) mg/dl Creatinine 1.40 (0.6-1.4) mg/dl Est Cr Clr Drug Dosing 65.4 ml/min Est GFR ( Amer) 60.3 Est GFR (Non-Af Amer) 52.0 BUN/Creatinine Ratio 23.5 H (10-20) Glucose 109 H (70-99) mg/dl Estimat Average Glucose mg/dl Hemoglobin A1c (4.5-5.6) % Calcium 8.8 (8.5-10.1) mg/dl Total Bilirubin 0.6 (0.2-1) mg/dl AST 22 (15-37) U/L ALT 38 (12-78) U/L Alkaline Phosphatase 68 (45-117) U/L POC Troponin I (0-0.045) ng/ml Troponin I (0-0.045) ng/ml NT-Pro-B Natriuret Pep (0-900) pg/ml Total Protein 7.4 (6.4-8.2) gm/dl Albumin 3.1 L (3.4-5.0) gm/dl Globulin 4.3 H (2.5-4.0) gm/dl Albumin/Globulin Ratio 0.7 L (0.9-2) Triglycerides 135 (0-150) mg/dl Cholesterol 187 (0-200) mg/dl LDL Cholesterol, Calc 107 mg/dl VLDL Cholesterol, Calc 27 mg/dl HDL Cholesterol 53 mg/dl Cholesterol/HDL Ratio 4 Homocysteine TSH (0.300-4.500) uIu/ml Urine Color Urine Appearance (Clear) Urine pH (4.5-7.5) Ur Specific [place] (1.000-1.030) Urine Protein (Negative) Urine Glucose (UA) (Negative) Urine Ketones (Negative) Urine Blood (Negative) Urine Nitrite (Negative) Urine Bilirubin (Negative) Urine Urobilinogen (Negative) Ur Leukocyte Esterase (Negative) Beta-2-GPI IgG Ab Beta-2-GPI IgA Ab Beta-2-GPI IgM Ab Phosphatidylserine IgG Phosphatidylserine IgA Phosphatidylserine IgM Anti-Phospholipid Intrp Anti-Cardiolipin IgG Ab Anti-Cardiolipin IgA Ab Anti-Cardiolipin IgM Ab Hepatitis C Ab Screen (Neg) Prothrombin Gene Mutate Prothromb Gene Comment 04/19/19 04/19/19 04/19/19 Range/Units 01:02 01:02 01:02 WBC 9.80 (4.8-10.8) K/uL RBC 4.47 L (4.7-6.1) M/uL Hgb 14.0 (14.0-18.0) g/dL Hct 39.9 L (42-52) % MCV 89.3 (80-100) fL MCH 31.3 (25-34) pg MCHC 35.1 (32-36) g/dL RDW Std Deviation 41.8 (36.4-46.3) fL RDW Coeff of Xavi 12.8 (11.5-14.5) % Plt Count 228 (130-400) K/uL MPV 9.3 (7.4-10.4) fL Immature Gran % (Auto) 0.5 % Neut % (Auto) 62.2 % Lymph % (Auto) 22.8 % [place] % (Auto) 10.5 % Eos % (Auto) 3.1 % Baso % (Auto) 0.9 % Immature Gran # (Auto) 0.05 H (0.00-0.02) K/uL Neut # (Auto) 6.10 (1.4-6.5) K/uL Lymph # (Auto) 2.23 (1.2-3.4) K/uL [place] # (Auto) 1.03 H (0.11-0.59) K/uL Eos # (Auto) 0.30 (0-0.5) K/uL Baso # (Auto) 0.09 (0-0.2) K/uL PT (9.0-12.0) Seconds INR (0.9-1.1) APTT 57.4 H* (21.0-31.0) Seconds PTT Ratio 2.1 Hexagonal Phase Confirm Protein C Activity Protein S Activity Antithrombin III Activ Factor V Leiden Mutat Factor V Leiden Interp Sodium (136-145) mmol/L Potassium (3.5-5.1) mmol/L Chloride (98-107) mmol/L Carbon Dioxide (21-32) mmol/L Anion Gap (3-11) BUN (7-18) mg/dl Creatinine (0.6-1.4) mg/dl Est Cr Clr Drug Dosing ml/min Est GFR ( Amer) Est GFR (Non-Af Amer) BUN/Creatinine Ratio (10-20) Glucose (70-99) mg/dl Estimat Average Glucose mg/dl Hemoglobin A1c (4.5-5.6) % Calcium (8.5-10.1) mg/dl Total Bilirubin (0.2-1) mg/dl AST (15-37) U/L ALT (12-78) U/L Alkaline Phosphatase (45-117) U/L POC Troponin I (0-0.045) ng/ml Troponin I < 0.015 (0-0.045) ng/ml NT-Pro-B Natriuret Pep 62 (0-900) pg/ml Total Protein (6.4-8.2) gm/dl Albumin (3.4-5.0) gm/dl Globulin (2.5-4.0) gm/dl Albumin/Globulin Ratio (0.9-2) Triglycerides (0-150) mg/dl Cholesterol (0-200) mg/dl LDL Cholesterol, Calc mg/dl VLDL Cholesterol, Calc mg/dl HDL Cholesterol mg/dl Cholesterol/HDL Ratio Homocysteine TSH (0.300-4.500) uIu/ml Urine Color Urine Appearance (Clear) Urine pH (4.5-7.5) Ur Specific [place] (1.000-1.030) Urine Protein (Negative) Urine Glucose (UA) (Negative) Urine Ketones (Negative) Urine Blood (Negative) Urine Nitrite (Negative) Urine Bilirubin (Negative) Urine Urobilinogen (Negative) Ur Leukocyte Esterase (Negative) Beta-2-GPI IgG Ab Beta-2-GPI IgA Ab Beta-2-GPI IgM Ab Phosphatidylserine IgG Phosphatidylserine IgA Phosphatidylserine IgM Anti-Phospholipid Intrp Anti-Cardiolipin IgG Ab Anti-Cardiolipin IgA Ab Anti-Cardiolipin IgM Ab Hepatitis C Ab Screen (Neg) Prothrombin Gene Mutate Prothromb Gene Comment 04/19/19 04/18/19 04/18/19 Range/Units 00:44 19:24 19:24 WBC (4.8-10.8) K/uL RBC (4.7-6.1) M/uL Hgb (14.0-18.0) g/dL Hct (42-52) % MCV (80-100) fL MCH (25-34) pg MCHC (32-36) g/dL RDW Std Deviation (36.4-46.3) fL RDW Coeff of Xavi (11.5-14.5) % Plt Count (130-400) K/uL MPV (7.4-10.4) fL Immature Gran % (Auto) % Neut % (Auto) % Lymph % (Auto) % [place] % (Auto) % Eos % (Auto) % Baso % (Auto) % Immature Gran # (Auto) (0.00-0.02) K/uL Neut # (Auto) (1.4-6.5) K/uL Lymph # (Auto) (1.2-3.4) K/uL [place] # (Auto) (0.11-0.59) K/uL Eos # (Auto) (0-0.5) K/uL Baso # (Auto) (0-0.2) K/uL PT (9.0-12.0) Seconds INR (0.9-1.1) APTT (21.0-31.0) Seconds PTT Ratio Hexagonal Phase Confirm Pending Protein C Activity Pending Protein S Activity Pending Antithrombin III Activ Pending Factor V Leiden Mutat Pending Factor V Leiden Interp Pending Sodium (136-145) mmol/L Potassium (3.5-5.1) mmol/L Chloride (98-107) mmol/L Carbon Dioxide (21-32) mmol/L Anion Gap (3-11) BUN (7-18) mg/dl Creatinine (0.6-1.4) mg/dl Est Cr Clr Drug Dosing ml/min Est GFR ( Amer) Est GFR (Non-Af Amer) BUN/Creatinine Ratio (10-20) Glucose (70-99) mg/dl Estimat Average Glucose mg/dl Hemoglobin A1c (4.5-5.6) % Calcium (8.5-10.1) mg/dl Total Bilirubin (0.2-1) mg/dl AST (15-37) U/L ALT (12-78) U/L Alkaline Phosphatase (45-117) U/L POC Troponin I (0-0.045) ng/ml Troponin I (0-0.045) ng/ml NT-Pro-B Natriuret Pep (0-900) pg/ml Total Protein (6.4-8.2) gm/dl Albumin (3.4-5.0) gm/dl Globulin (2.5-4.0) gm/dl Albumin/Globulin Ratio (0.9-2) Triglycerides (0-150) mg/dl Cholesterol (0-200) mg/dl LDL Cholesterol, Calc mg/dl VLDL Cholesterol, Calc mg/dl HDL Cholesterol mg/dl Cholesterol/HDL Ratio Homocysteine Pending TSH (0.300-4.500) uIu/ml Urine Color Yellow Urine Appearance Clear (Clear) Urine pH 5.0 (4.5-7.5) Ur Specific [place] > 1.045 H (1.000-1.030) Urine Protein Negative (Negative) Urine Glucose (UA) Negative (Negative) Urine Ketones Negative (Negative) Urine Blood Negative (Negative) Urine Nitrite Negative (Negative) Urine Bilirubin Negative (Negative) Urine Urobilinogen Negative (Negative) Ur Leukocyte Esterase Negative (Negative) Beta-2-GPI IgG Ab Pending Beta-2-GPI IgA Ab Pending Beta-2-GPI IgM Ab Pending Phosphatidylserine IgG Phosphatidylserine IgA Phosphatidylserine IgM Anti-Phospholipid Intrp Anti-Cardiolipin IgG Ab Pending Anti-Cardiolipin IgA Ab Pending Anti-Cardiolipin IgM Ab Pending Hepatitis C Ab Screen (Neg) Prothrombin Gene Mutate Pending Prothromb Gene Comment Pending 04/18/19 04/18/19 04/18/19 Range/Units 16:24 16:15 16:14 WBC 12.53 H (4.8-10.8) K/uL RBC 4.95 (4.7-6.1) M/uL Hgb 15.7 (14.0-18.0) g/dL Hct 44.1 (42-52) % MCV 89.1 (80-100) fL MCH 31.7 (25-34) pg MCHC 35.6 (32-36) g/dL RDW Std Deviation 41.5 (36.4-46.3) fL RDW Coeff of Xavi 12.8 (11.5-14.5) % Plt Count 242 (130-400) K/uL MPV 9.3 (7.4-10.4) fL Immature Gran % (Auto) 0.5 % Neut % (Auto) 76.8 % Lymph % (Auto) 12.7 % [place] % (Auto) 8.1 % Eos % (Auto) 1.4 % Baso % (Auto) 0.5 % Immature Gran # (Auto) 0.06 H (0.00-0.02) K/uL Neut # (Auto) 9.64 H (1.4-6.5) K/uL Lymph # (Auto) 1.59 (1.2-3.4) K/uL [place] # (Auto) 1.01 H (0.11-0.59) K/uL Eos # (Auto) 0.17 (0-0.5) K/uL Baso # (Auto) 0.06 (0-0.2) K/uL PT (9.0-12.0) Seconds INR (0.9-1.1) APTT (21.0-31.0) Seconds PTT Ratio Hexagonal Phase Confirm Protein C Activity Protein S Activity Antithrombin III Activ Factor V Leiden Mutat Factor V Leiden Interp Sodium (136-145) mmol/L Potassium (3.5-5.1) mmol/L Chloride (98-107) mmol/L Carbon Dioxide (21-32) mmol/L Anion Gap (3-11) BUN (7-18) mg/dl Creatinine (0.6-1.4) mg/dl Est Cr Clr Drug Dosing ml/min Est GFR ( Amer) Est GFR (Non-Af Amer) BUN/Creatinine Ratio (10-20) Glucose (70-99) mg/dl Estimat Average Glucose mg/dl Hemoglobin A1c (4.5-5.6) % Calcium (8.5-10.1) mg/dl Total Bilirubin (0.2-1) mg/dl AST (15-37) U/L ALT (12-78) U/L Alkaline Phosphatase (45-117) U/L POC Troponin I < 0.03 (0-0.045) ng/ml Troponin I (0-0.045) ng/ml NT-Pro-B Natriuret Pep (0-900) pg/ml Total Protein (6.4-8.2) gm/dl Albumin (3.4-5.0) gm/dl Globulin (2.5-4.0) gm/dl Albumin/Globulin Ratio (0.9-2) Triglycerides (0-150) mg/dl Cholesterol (0-200) mg/dl LDL Cholesterol, Calc mg/dl VLDL Cholesterol, Calc mg/dl HDL Cholesterol mg/dl Cholesterol/HDL Ratio Homocysteine TSH (0.300-4.500) uIu/ml Urine Color Urine Appearance (Clear) Urine pH (4.5-7.5) Ur Specific [place] (1.000-1.030) Urine Protein (Negative) Urine Glucose (UA) (Negative) Urine Ketones (Negative) Urine Blood (Negative) Urine Nitrite (Negative) Urine Bilirubin (Negative) Urine Urobilinogen (Negative) Ur Leukocyte Esterase (Negative) Beta-2-GPI IgG Ab Beta-2-GPI IgA Ab Beta-2-GPI IgM Ab Phosphatidylserine IgG Phosphatidylserine IgA Phosphatidylserine IgM Anti-Phospholipid Intrp Anti-Cardiolipin IgG Ab Anti-Cardiolipin IgA Ab Anti-Cardiolipin IgM Ab Hepatitis C Ab Screen Neg (Neg) Prothrombin Gene Mutate Prothromb Gene Comment 04/18/19 04/18/19 Range/Units 16:14 16:14 WBC (4.8-10.8) K/uL RBC (4.7-6.1) M/uL Hgb (14.0-18.0) g/dL Hct (42-52) % MCV (80-100) fL MCH (25-34) pg MCHC (32-36) g/dL RDW Std Deviation (36.4-46.3) fL RDW Coeff of Xavi (11.5-14.5) % Plt Count (130-400) K/uL MPV (7.4-10.4) fL Immature Gran % (Auto) % Neut % (Auto) % Lymph % (Auto) % [place] % (Auto) % Eos % (Auto) % Baso % (Auto) % Immature Gran # (Auto) (0.00-0.02) K/uL Neut # (Auto) (1.4-6.5) K/uL Lymph # (Auto) (1.2-3.4) K/uL [place] # (Auto) (0.11-0.59) K/uL Eos # (Auto) (0-0.5) K/uL Baso # (Auto) (0-0.2) K/uL PT 11.4 (9.0-12.0) Seconds INR 1.1 (0.9-1.1) APTT 23.6 (21.0-31.0) Seconds PTT Ratio 0.9 Hexagonal Phase Confirm Protein C Activity Protein S Activity Antithrombin III Activ Factor V Leiden Mutat Factor V Leiden Interp Sodium 136 (136-145) mmol/L Potassium 4.1 (3.5-5.1) mmol/L Chloride 100 (98-107) mmol/L Carbon Dioxide 23 (21-32) mmol/L Anion Gap 13.0 H (3-11) BUN 38 H (7-18) mg/dl Creatinine 1.60 H (0.6-1.4) mg/dl Est Cr Clr Drug Dosing 56.7 ml/min Est GFR ( Amer) 51.3 Est GFR (Non-Af Amer) 44.2 BUN/Creatinine Ratio 23.6 H (10-20) Glucose 136 H (70-99) mg/dl Estimat Average Glucose mg/dl Hemoglobin A1c (4.5-5.6) % Calcium 9.7 (8.5-10.1) mg/dl Total Bilirubin 0.9 (0.2-1) mg/dl AST 32 (15-37) U/L ALT 46 (12-78) U/L Alkaline Phosphatase 80 (45-117) U/L POC Troponin I (0-0.045) ng/ml Troponin I (0-0.045) ng/ml NT-Pro-B Natriuret Pep (0-900) pg/ml Total Protein 8.7 H (6.4-8.2) gm/dl Albumin 3.9 (3.4-5.0) gm/dl Globulin 4.8 H (2.5-4.0) gm/dl Albumin/Globulin Ratio 0.8 L (0.9-2) Triglycerides (0-150) mg/dl Cholesterol (0-200) mg/dl LDL Cholesterol, Calc mg/dl VLDL Cholesterol, Calc mg/dl HDL Cholesterol mg/dl Cholesterol/HDL Ratio Homocysteine TSH 1.540 (0.300-4.500) uIu/ml Urine Color Urine Appearance (Clear) Urine pH (4.5-7.5) Ur Specific [place] (1.000-1.030) Urine Protein (Negative) Urine Glucose (UA) (Negative) Urine Ketones (Negative) Urine Blood (Negative) Urine Nitrite (Negative) Urine Bilirubin (Negative) Urine Urobilinogen (Negative) Ur Leukocyte Esterase (Negative) Beta-2-GPI IgG Ab Beta-2-GPI IgA Ab Beta-2-GPI IgM Ab Phosphatidylserine IgG Phosphatidylserine IgA Phosphatidylserine IgM Anti-Phospholipid Intrp Anti-Cardiolipin IgG Ab Anti-Cardiolipin IgA Ab Anti-Cardiolipin IgM Ab Hepatitis C Ab Screen (Neg) Prothrombin Gene Mutate Prothromb Gene Comment Medications Administered Current Inpatient Medications Acetaminophen (Tylenol) 650 mg PO Q4H PRN PRN Reason: Pain or Fever Stop: 05/18/19 22:44 Al Hydrox/Mg Hydrox/Simethicone (Maalox) 15 ml PO Q4H PRN PRN Reason: Dyspepsia Stop: 05/18/19 22:44 Aspirin (Ecotrin Ectab) 81 mg PO QAM [facility] Stop: 05/19/19 08:59 Last Admin: 04/19/19 08:01 Dose: 81 mg Documented by: Heparin Sodium/Dextrose (Heparin Sodium/Dextrose) 25,000 units in 500 mls @ 32 mls/hr IV .[id number] [facility]; Protocol Stop: 05/18/19 18:44 Last Admin: 04/18/19 19:05 Dose: 1,600 units/hr, 32 mls/hr Documented by: Sodium Chloride (Nss 1000ml) 1,000 mls @ 100 mls/hr IV .Q10H [facility] Stop: 05/18/19 22:44 Last Admin: 04/19/19 09:27 Dose: 100 mls/hr Documented by: Ceftriaxone Sodium 2,000 mg/ (Dextrose) 70 mls @ 100 mls/hr IV Q24H [facility]; Protocol Stop: 04/20/19 23:29 Last Infusion: 04/19/19 00:45 Dose: Infused Documented by: Magnesium Hydroxide (Milk Of Magnesia) 30 ml PO Q12H PRN PRN Reason: Constipation Stop: 05/18/19 22:44 Oxycodone/Acetaminophen (Percocet 5mg/325mg) 1 tab PO Q4H PRN PRN Reason: Pain Stop: 05/02/19 22:44 Polyethylene Glycol (Miralax Powder Packet) 17 gm PO DAILY PRN PRN Reason: Constipation Stop: 05/18/19 22:44 Zolpidem Tartrate (Ambien) 5 mg PO HS PRN PRN Reason: Sleep Stop: 05/18/19 22:44 PG Care Time/CCT Total # of Minutes Spent Total Time Spent with Patient: Total time spent is greater than 50% in coordination of care (as documented) at patient's floor/unit and/or counseling patient: (1) Deep vein thrombosis (DVT) of left lower extremity Affected thrombotic vein of extremity: unspecified vein of extremity Chronicity: unspecified Qualified Code(s): I82.402 - Acute embolism and thrombosis of unspecified deep veins of left lower extremity (2) Pulmonary embolism Acute cor pulmonale presence: unspecified Chronicity: unspecified Pulmonary embolism type: unspecified Qualified Code(s): I26.99 - Other pulmonary embolism without acute cor pulmonale
[2019-04-19] MEDS: ASPIRIN 81 MG ECTAB PO SCH (08:01)
--- NOTE | 2019-04-19 08:42 | Consultation Report ---
DATE OF CONSULTATION: 04/19/2019 REASON FOR CONSULTATION: Extensive left lower extremity DVT with pulmonary embolism. HISTORY OF PRESENT ILLNESS: Ricky is a very pleasant 68-year-old gentleman who was admitted to [facility] on 04/18/2019 with subacute onset left lower extremity swelling and pain. The patient states he developed subacute onset left lower extremity swelling and he estimates 10 days to 2 weeks ago. For the most part, this gentleman has no significant medical history, in fact has not seen a physician in quite some time. He also has been remised in obtaining his age appropriate cancer screenings as well. Nonetheless, the patient states that he is relatively active and actually bicycles quite frequently. He had noticed his left lower extremity began to swell and was somewhat nondescript on the actual pain, but from what he describes sort of a Charley horse like sensation. Nonetheless, he denied any shortness of breath or dyspnea to me. His leg swelling is what truly brought him to the hospital. He denies any prior history of thromboembolic disease nor does he have family history of thromboembolic disease. Appropriately, Doppler study was performed indicating an extensive left lower extremity DVT. CTA of the chest also revealed right-sided pulmonary emboli with mild flattening of the intraventricular septum suggestive of mild right heart strain and a small focal wedge-shaped consolidation at base of the right lower lobe consistent with pulmonary infarct. The patient is presently on unfractionated heparin. He offers no complaints today. In general, he denies fevers, chills or sweats. He states his appetite has diminished. He equates because of progressive left lower extremity pain. PAST MEDICAL HISTORY: He has a large well circumscribed spongy lesion involving his forehead. He estimates has been there for about 10 years. PAST SURGICAL HISTORY: Negative. CURRENT MEDICATIONS: No prescription medications. ALLERGIES: No known drug allergies. FAMILY HISTORY: Both his parents are . He believes his father succumbed to prostate cancer. His mother from heart disease. Again, no history of thrombophilia or hematologic malignancies. SOCIAL HISTORY: The patient is retired. Again, he does drink beer about 3-4 times per week. Negative for tobacco or illicit drugs. REVIEW OF SYSTEMS: GENERAL: Negative for fevers, chills or sweats. He does notice slight decrease in his appetite. He is not losing weight. SKIN: No rashes or lesions. No history of dermatoses. HEENT: Again, a large well circumscribed soft tissue lesion involving his forehead. Otherwise, no headaches, lightheadedness or dizziness. No acute visual or hearing deficits. No sinus symptoms, sore throat or dysphagia. LYMPH: No history of lymphoproliferative disease. CARDIAC: No history of coronary artery disease, no angina or palpitations. PULMONARY: Negative for COPD. No shortness of breath, dyspnea or orthopnea. No cough or hemoptysis. GASTROINTESTINAL: Negative for abdominal pain, nausea, vomiting, diarrhea or constipation, hematochezia or melena stools. GENITOURINARY: No hematuria, dysuria, urinary incontinence. PSYCHIATRIC: Negative for anxiety, depression or psychoses. ENDOCRINE: Negative for diabetes or thyroid disease. MUSCULOSKELETAL: No arthralgias or myalgias. No overt muscle weakness. NEUROLOGIC: Negative for seizure, stroke, or migraine headache. HEMATOLOGIC: Negative for anemia, thrombophilia or bleeding diathesis by history. PHYSICAL EXAMINATION: GENERAL: Very pleasant 68-year-old gentleman, awake, alert and appropriate, in no acute distress. VITAL SIGNS: Temperature 36.8, pulse 88, respiratory rate 18, blood pressure 135/82. SKIN: Warm, dry, noncyanotic without petechia, rash or ecchymosis. HEENT: Head is atraumatic, normocephalic. Again, he has a large what appears to be a lipoma. I would estimate about 5-6 cm in diameter right in the center of his forehead. Eyes: PERRLA, EOMI. Sclerae nonicteric. No conjunctival injection. Nares are patent without rhinorrhea or discharge. Throat is clear. Tongue is midline. Mucous membranes are moist. No buccal lesions or ulcerations. NECK: Supple without JVD or thyromegaly. Trachea is midline. LYMPHATICS: No cervical or supraclavicular palpable lymph nodes. HEART: Regular rate and rhythm. No clicks, rubs, murmurs or gallops. LUNGS: Clear to auscultation bilaterally. ABDOMEN: Soft, nontender, nondistended, without palpable hepatosplenomegaly. EXTREMITIES: No calf tenderness or swelling. No clubbing, cyanosis or edema. Left lower extremity markedly swollen almost twice the size of his right side. NEUROLOGICALLY: He is awake, alert and oriented x3. Cranial nerves II-XII are grossly intact. No gross motor or sensory deficits are noted. LABORATORY DATA: WBC count 9100, hemoglobin 14.3, platelet count 209,000. PTT 52.2 seconds, currently on unfractionated heparin. Sodium 136, potassium 4.5, chloride 104, carbon dioxide 25, creatinine 1.40, BUN 33. IMPRESSION: 1. Extensive pulmonary embolism with suspected right heart strain. 2. Left lower extremity deep venous thrombosis. 3. Renal insufficiency. PLAN: Ricky is a very pleasant 68-year-old gentleman who is since has not seen a medical staffing coordinator in several years. He has no pertinent past medical history and suffered a spontaneous extensive left lower extremity DVT and pulmonary embolism. When middle-age folks have unprovoked thrombosis, occult neoplasia is always a concern. This gentleman has had no medical followup including age appropriate cancer screening. 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 He should undergo colonoscopy and most certainly should have a screening PSA perhaps while inpatient. Colonoscopy obviously can wait. He is showing no general signs of emerging neoplasia with the exception of slight alteration in appetite, which he equates to increased left lower extremity pain. There is no prior or family history of thrombophilia. I think in Mr. Franco case, it is reasonable to pursue hypercoag panel which can be reviewed during outpatient follow up. He should remain on anticoagulation indefinitely until he is seen in followup. I have no issue with choice of anticoagulant in Ricky's case, but may change my mind once hypercoag results are available for review. He has had this large what appears to be a lipoma in the center of his forehead. He estimates lesion has been there for 10 years. There is no utility in removing unless it becomes uncomfortable. The only other laboratory issue I took note of was elevation in creatinine. Again, this gentleman should have a complete medical examination, reviewing all systems and work him up completely thereafter. We will make arrangements for outpatient followup. Thank you very much for allowing me to participate in the care of this very pleasant gentleman. [facility]ITAL[facility]
[2019-04-19] MEDS: SODIUM CHLORIDE 0.9% 1000ML 1,000 ML IV SCH ×2 (09:27→19:20)
[2019-04-19] MEDS: HEPARIN SODIUM/DEXTROSE 25,000 UNITS/500 ML BAG IV SCH (11:28)
[2019-04-19] MEDS: RIVAROXABAN 15 MG TAB PO SCH ×2 (19:21→19:36)
[2019-04-20] MEDS: SODIUM CHLORIDE 0.9% 1000ML 1,000 ML IV SCH (05:38)
[2019-04-20 06:07] LABS: Basophils # (auto) 0.08 K/uL (0-0.2); Basophils % (auto) 1.1 %; Eosinophils # (auto) 0.32 K/uL (0-0.5); Eosinophils % (auto) 4.5 %; Hematocrit (blood only) 37.2 % (42-52); Hemoglobin 12.7 g/dL (14.0-18.0); Immature Granulocytes # (auto) 0.03 K/uL (0.00-0.02); Immature Granulocytes % (auto) 0.4 %; Lymphocytes # (auto) 1.39 K/uL (1.2-3.4); Lymphocytes % (auto) 19.7 %; Mean Corpuscular Hemoglobin 30.8 pg (25-34); Mean Corpuscular Hgb Conc 34.1 g/dL (32-36); Mean Corpuscular Volume 90.3 fL (80-100); Mean Platelet Volume 9.3 fL (7.4-10.4); Monocytes # (auto) 0.82 K/uL (0.11-0.59); Monocytes % (auto) 11.6 %; Neutrophils # (auto) 4.43 K/uL (1.4-6.5); Neutrophils % (auto) 62.7 %; Platelet Count 229 K/uL (130-400); RDW Coefficient of Variation 12.7 % (11.5-14.5); RDW Standard Deviation 41.8 fL (36.4-46.3); Red Blood Count 4.12 M/uL (4.7-6.1); White Blood Count 7.07 K/uL (4.8-10.8)
[2019-04-20 06:19] LABS: INR 1.2 (0.9-1.1); Partial Thromboplastin Time 26.6 Seconds (21.0-31.0); Prothrombin Time 11.8 Seconds (9.0-12.0)
[2019-04-20 06:43] LABS: Albumin Globulin Ratio 0.7 (0.9-2); Albumin Level 2.9 gm/dl (3.4-5.0); BUN Creatinine Ratio 23.1 (10-20); Bilirubin,Total 0.6 mg/dl (0.2-1); Calcium 8.7 mg/dl (8.5-10.1); Creatinine Clr Calc Pharmacy 73.2 ml/min; Est GFR (African American) 69.1; Est GFR (Non-African American) 59.6; Globulin 3.9 gm/dl (2.5-4.0); Potassium 4.7 mmol/L (3.5-5.1); Total Protein 6.8 gm/dl (6.4-8.2)
--- NOTE | 2019-04-20 07:02 | Discharge Summary ---
Date of Service April 20, 2019 Admission HPI Per Admitting Provider Patient is a 68 years old male without significant past medical history who presents to the emergency room with a complaint of left lower extremity pain and swelling that started 2 weeks ago and intermittent shortness of breath. Patient states that he woke up with pain 2 weeks ago and he did not sustain any left lower extremity injury nor nor did long distance travel or driving or flying or prolonged sitting. Patient said that he is very active and he walks around. Patient reports vomited once within the past week. Other than that patient denies fever chills, headache, chest pain, cough, abdominal pain, frequency, urgency, melena, hematemesis, hematuria, hemoptysis, hematochezia, syncope or near syncope. Labs WBC 12.53, hemoglobin 15.7, hematocrit 44.1, platelets 242. Protein C activity pending, protein S activity pending, Antithrombin III activity pending factor V Leyden mutation pending factor V Leyden interpretation pending, beta 2 GPI IgG G antibody pending beta-2 GPI IgA antibody pending beta- 2 GPI IgM antibody pending, anticardiolipin IgG G antibody pending anticardiolipin IgA antibody pending cardiolipin IgM antibody pending, prothrombin gene mutation pending. PT 11.4, INR 1.1, APTT 23.6. Sodium 136, potassium 4.1, chloride 100 anion gap 13 BUN 38 creatinine 1.6 GFR 44.2, homocystine pending, TSH 1.54, troponin less than 0.03. CTA of the chest right- sided pulmonary embolus with mild flattening of the intraventricular septum suggestive of mild right-sided heart strain. Small focal wedge-shaped consolidation within the base of the right lower lobe consistent with pulmonary infarct. The case discussed with ICU and he agrees to keep his in the PCU unless he develop hemodynamic instability, then he should be transferred to the PCU on telemetry for further management and treatment of pulmonary embolism, pulmonary infarction and left lower extremity extremity DVT. Admission Exam Per Admitting Provider Constitutional: WD/WN, vitals as above well developed Eyes: PERRL, conjunctivae normal, anicteric sclerae ENMT: external ear and nose normal, oropharynx normal Neck: trachea midline, no thyromegaly Respiratory: Auscultation: + wheezes Cardiovascular: RRR, no murmur, no edema Chest (Breasts): normal inspection/palpation of breasts Skin: no rashes, warm and dry Neurologic: patellar DTR's 2+ bilat, sensation intact Psychiatric: A+Ox3, euthymic affect Lymphatic: no cervical or axillary lymphadenopathy Principal Diagnosis Unprovoked pulmonary embolism secondary to unprovoked DVT Discharge Exam General: Well-appearing gentleman in no acute distress lying flat in bed HEENT: Normocephalic atraumatic, has a mass on his head has been there a long time per the patient it is benign Neck: Normal to visual inspection, trachea midline, negative JVD Cardiac: Regular rate and rhythm, I did not appreciate any significant murmurs rubs or gallops, good capillary refill Respiratory: Clear to auscultation bilaterally with symmetrical chest rise, I did not appreciate any wheezes, rales, rhonchi GI: Normal bowel sounds, nontender, nondistended MSK: Moves all extremities Skin: Clean dry intact, well-perfused Neuro: Alert and oriented x4, CN II through XII intact, no motor or sensory deficits Psych: Calm, cooperative, eager to get up and move around Discharge Data Allergies Allergy/AdvReac Type Severity Reaction Status Date / Time No Known Allergies Allergy Unverified 04/18/19 17:21 Consultations 04/18/19 18:43 ED Decision to Admit Stat 04/18/19 22:45 Consult Case Management - Discharge Planning Routine Consult Hematology Routine 04/19/19 13:12 Consult Case Management - Discharge Planning Routine Ordered Studies 04/18/19 15:54 US venous doppler LE LT Stat 04/18/19 15:56 CT angio chest PE protocol Stat 04/18/19 22:45 US renal/blad retro comp Urgent Hospital Course (1) Pulmonary embolism: PCP TO Do -Age specific cancer screening -Follow-up prostamegaly with PSA -Health maintenance -Outpatient creatinine follow-up resolution of JOSE #Pulmonary embolus Patient admitted to PCU on telemetry on April 18, 2019 for evaluation management of unprovoked pulmonary embolus secondary to unprovoked lower extremity DVT. A chest CTA was obtained demonstrating right-sided pulmonary emboli with mild flattening of the IV septum suggestive of mild right heart strain, and a small focal wedge-shaped consolidation within the base of the right lower lobe consistent with a pulmonary infarct. A left lower extremity venous Doppler was performed demonstrating extensive DVT throughout the entire left lower extremity He was initially placed on a heparin drip in the emergency department and this was continued in the PCU. His troponins were monitored and initially and continued to be negative. After a thorough history there were no significant risk factors, with the exception of lack of significant primary care and routine age-related cancer prevention. A hypercoagulable work-up was obtained and hematology consulted. Hematology recommended transition from heparin drip to Xarelto this occurred in the evening of April 19. A transthoracic echo was obtained demonstrating LVH and decreased right ventricular systolic function with a normal ejection fraction. The patient did well on Xarelto and was subsequently discharged the following day with instructions to refrain from significant vigorous activity and to follow-up with the PCP and under a week and hematology in 1 month. -Xarelto 15 mg twice daily with food for 21 days then 20 mg daily with food #Pulmonary infarct: Management as above #DVT of left lower extremity: Management as above #JOSE: Creatinine elevated to 1.6, and GFR of 44.2, at this point is not clear if this is acute or chronic kidney insufficiency since patient was not in this hospital before. -Cr 1.6->1.4->1.25 -Avoid nephrotoxic agents. #Leukocytosis: Urinalysis negative received a dose of ceftriaxone in the ED. Leukocytosis likely secondary to pulmonary embolism given no overt signs or symptoms of infection. Received 1 dose of ceftriaxone in the emergency department FENa: Heart healthy Code Status: Full code DVT PPX: Xarelto Dispo: Discharge Home Samy Zhong MD PGY 2, FCM This chart was completed utilizing [employer] voice recognition software. Grammatical errors, random word insertions, pronoun errors, and in complete sentences are an occasional consequence of the system. Any questions or concerns about the content, text, or information contained within the body of this dictation should be addressed directly to the physician for clarification. Discharge Plan Discharge Items Patient Disposition: Home - Self-Care Reason For Visit: PE LLE DVT Discharge Diagnosis: Unprovoked pulmonary embolus secondary to unprovoked left lower extremity deep vein thrombosis Activity: As commented below Activity Comment: Please limit vigorous activity Non-emergency contact: Primary Care Provider Call non-emergency contact if: your symptoms worsen, your pain is not controlled, your pain is worsening and your temperature is above 101 Follow-up/Referrals: Dewayne Juarez DO [Physician] - (Please, follow up with Dr. Juarez (slurry tank operator). *A nurse from this office will call you with the appointment information. The office is located in the rear of this hospital building. You will park behind the hospital in [address] and enter via [employer]. If you have any questions, call his office at [phone].) Megha Soler MD [Primary Care Provider] - 04/30/19 1:30 pm (Please, follow up at [facility] [place] Office with Dr. Soler on FridayApril 30 at 1:45 pm (arrive 1:30 pm). *The office is located at [address] [place] [address] in [place]. If you need to change this appointment, call the office at [phone]. DR. SOLER WILL BE YOUR NEW PRIMARY CARE PROVIDER) Diet: Heart Healthy Addtl Attending Provider Instructions: Care instructions: You were admitted to [facility] for treatment of unprovoked pulmonary embolus secondary to unprovoked left lower extremity DVT (a blood clot in your lungs that occurred as a result of a blood clot in your legs without known risk factors). As you return to her usual state of health, it is important to limit vigorous activity until seen in follow-up by hematology. Vigorous activity may cause further parts of this clot in your left lower extremity to dislodge and travel elsewhere where they may cause pathology. It is important that you take your medication as described below. Should you have any questions or concerns please feel free to contact us. A discharge summary will be sent to your primary care physician to ensure continuity of care. Please bring this discharge summary with you to your next office appointment so that your provider can review it at that time. Follow-up appointments: - Keep all your follow-up appointments as already scheduled. If you cannot make an appointment, notify your provider. - Please call to request a follow-up appointment with your primary care physician within one week of discharge. Please let us know if you are unable to obtain an appointment Medications: - Your medication list has been reviewed and reconciled upon discharge to ensure accuracy and continuity of care. - You are provided with a list of all your current medications at this time. Please review this list closely and make note of any changes. - Please take all of your medications exactly as prescribed. - Tell your primary care provider if you cannot afford your medications. - Call your primary care provider if you are having any side effects or any other problems. - Call your primary care provider before taking any over the counter medications or supplements, including herbals and vitamins, because some of these may interact with your current medications and/or make your symptoms worse. Xarelto: Please take 15 mg twice daily with food for 21 days, then 20 mg daily with food. While hospitalized he was started on a medication to thin your blood called Xarelto. This medication will increase the time it takes for a clot to form after injury. Therefore it is of the utmost importance that you use caution with activities in which you can injure yourself, such as bicycle riding. If you were to injure yourself, hit your head, or experience bleeding that does not stop with 15 minutes of direct pressure you should contact your primary care provider or return to the emergency department for further follow-up Symptoms: Please call your primary care provider for symptoms including, but not limited to: fevers (temperatures greater than 100.4), chills, intractable nausea or vomiting, diarrhea, rash, shortness of breath, bleeding, pain, or if you experience any worsening of the symptoms that brought you to the hospital. For EMERGENCY and VERY SERIOUS health-related issues, such as chest pain, shortness of breath, or sudden onset of the symptoms that brought you to the hospital, you may need to call 911 or go directly to the Emergency Room It has been our privilege to take care of you during your hospital stay. And Above All Else Feel Better! Best Wishes, Samy Zhong MD PGY2 Resident, Family & Community Medicine [facility] Res[facility] at [facility] [place] [id number] [facility], [address] : [address] [place] [id number] Pending Studies at Discharge: No Stand-Alone Forms: My [facility] Medications and DC Order Prescriptions: New Xarelto 15 mg (42)- 20 mg (9) tablets,dose pack See Rx Instructions .ROUTE .COMPLEX Qty: 51 RF: 0 aspirin [Ecotrin Low Strength] 81 mg Tablet,Delayed Release (Dr/Ec) 81 mg PO QAM 30 Days Qty: 30 RF: 0 Discharge Orders: Discharge Order (Routine); Ordered 04/20/19 Ordered By: Samy Zhong Admission Data Admit Date/Time: 04/18/19 21:14 Attending Provider: Maureen Gutierrez Admit Provider: Sushila Rubalcava Primary Care Provider: Megha Soler Other Providers: Sushila Rubalcava ; Alen Powell Other Interventions: Discharge Summary Assessment (RN) Last Done: 04/20/19 11:02 DC Date/Time DO NOT enter until pt leaves facility: 04/20/19 13:02 Supervising Physician Co-Signing Physician Notes Patient seen and examined with PGY-2 Dr. Zhong and PGY-3 Dr. Land. Agree with history, exam findings, assessment and plan of care with the following additions/corrections: In brief, Mr. Franco is a previously healthy 68 year old male who is admitted with unprovoked extensive left lower extremity DVT and PE. He is doing well today. Denies shortness of breath. Does still have some discomfort in the left leg due to swelling. PE: Vital signs reviewed. No tachycardia or hypotension. Saturating well on room air. Lungs are clear to ausculation without wheezes, ronchi or rales. Heart with regular rate and rhythm. No murmur, rub or gallop. The left lower leg with swelling and is nearly twice the size of the right lower leg. +2 pulses posterior tib. Feet are warm and pink. A/P: 1. unprovoked extensive left lower leg DVT with PE and pulmonary infarct. Continue xarelto. Hypercoag work up in progress. Will need colon cancer screening and prostate cancer screening. Can be done as an outpatient. 2. JOSE. resolved. D/C IVFs as he is taking PO well. 3. leukocytosis. No evidence of infection. Received 1 dose of ceftriaxone. Suspect this is most likely a reactive leukocytosis from DVT and PE. Dispo: Discharge home today with Xarelto. Will need PCP follow up. I personally spent 35 minutes discharge planning for this patient. Resident Activity Tracking Resident Involvement: Resident Care Provided Care Provided: Adult [facility]
[2019-04-20] MEDS: RIVAROXABAN 15 MG TAB PO SCH (07:34)
[2019-04-20] MEDS: ASPIRIN 81 MG ECTAB PO SCH (07:35)
[2019-04-23 21:25] LABS: Anti Cardiolipin Ab IgG <14 GPL (< = 14); Anti Cardiolipin Ab IgM <12 MPL (< = 12); Anti-Cardiolipin Ab IgA <11 APL (< = 11); Anti-Thrombin III Activity 122 % activity (80-120); B2 Glycoprotein IgA <9 SAU (<=20); B2 Glycoprotein IgG <9 SGU (<=20); B2 Glycoprotein IgM <9 SMU (<=20); Lupus Antic Hexagonal Phase Positive (Negative); Protein S Functional(Activity) 131 % (70-150)
[2019-04-23 21:25] LABS: B2 Glycoprotein IgA <9 SAU (<=20); B2 Glycoprotein IgG <9 SGU (<=20); B2 Glycoprotein IgM <9 SMU (<=20); Phosphatidylserine IgG <10 U/mL (<10); Phosphatidylserine IgM <25 U/mL (<25)
== END 2019-04-20 13:02 | disposition home or self-care (01) | DRG 299 ==
LOC: ED 15:33 → SUATTDRO 21:14 → 2S 21:14